=== PATIENT | female | born 1980 | race Caucasian/White ===

== ENCOUNTER 2017-08-19 09:16 | Emergency (ER) | payer SELFPAY ==
[~2017-08-19] VITALS: Ht 160 cm; Wt 54.0 kg
[2017-08-19 11:19] VITALS: BP 109/64
== END 2017-08-19 11:47 | disposition home or self-care (01) ==
LOC: ER 09:42
DX: K64.4 Residual hemorrhoidal skin tags (principal); F17.210 Nicotine dependence, cigarettes, uncomplicated
CPT/HCPCS: 99282